=== PATIENT | male | born 1975 | race Two or more races ===

== ENCOUNTER 2016-11-14 15:53 | Emergency (ER) | payer SELFPAY ==
[~2016-11-14] VITALS: Ht 170.2 cm; Wt 113.4 kg
[2016-11-14] MEDS ORDERED: NKM (16:00)
--- NOTE | 2016-11-14 16:12 | Emergency Room Report ---
History of Present Illness General Chief Complaint: Laceration Source: Patient Present Illness HPI Patient with laceration R hand. He was transferring a knife with his L hand and not looking when he sliced his R hand. There was significant bleeding. He applied pressure and the bleeding was controlled. There is minimal pain - sharp. No numbness. Able to move his finger without difficulty. R handed No diabetes. Tetanus > 10. 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 Reviewed Nursing Documentation: PMH: Agreed, PSxH: Agreed Nursing Documentation-PMH Past Medical History: No Stated History Review of Systems Constitutional: Denies: fever Musculoskeletal: Reports: see HPI Skin: Reports: see HPI Neurological: Reports: see HPI Hematologic/Lymphatic: Reports: see HPI Physical Exam Vital Signs Date Time Temp Pulse Resp B/P Pulse Ox O2 Delivery O2 Flow Rate FiO2 11/14/16 15:57 97.7 106 18 116/77 95 Room Air Sp02 EP Interpretation: reviewed, normal General Appearance: well appearing, no apparent distress, GCS 15 Head: normocephalic, atraumatic Eyes: bilateral eye PERRL, bilateral eye normal inspection ENT: hearing grossly normal, normal voice, moist mucus membranes Neck: full range of motion, supple Respiratory: no respiratory distress, speaking full sentences Cardiovascular #2: 2+ radial (R) Musculoskeletal: digits/nails normal, normal range of motion, other - extension of index finger with full strength Neurologic: oriented x3, motor strength/tone normal, sensory intact Psychiatric: mood/affect normal Skin: laceration - 2 cm dorsum of index MCP R hand Procedures Laceration/Wound Repair Laceration/Wound Repair : Consent: Verbal Wound Location: upper extremity Wound's Depth, Shape: linear, flap Wound Length (cm): 3 Wound Explored: clean Irrigated w/ Saline (ccs): 40 Betadine Prep?: Yes Anesthesia: 1% Lidocaine Volume Anesthetic (ccs): 2 Wound Debrided: minimal Suture Size/Type: 5:0, nylon Deep Layer Suture Size/Type: 5:0, chromic, other - one suture to control venous bleeding Sterile Dressing Applied?: Yes Splint Applied?: Yes Type of Splint Applied: Index finger - straight Sling Applied?: Yes Patient Tolerated: Well Complications: None Medical Decision Making Diagnostic Impression: Primary Impression: Laceration of right index finger Additional Impression: Partial extensor tendon laceration ER Course Patient with laceration dorsum of R hand with bleeding. Ddx: venous bleed, tendon partial lac, lac needing sutures. Patient also needs tetanus. Exam after anesthesia shows partial extensor tendon laceration. This does not need immediate repair (and might not need repair). Antibiotics begun. Laceration repaired. Bleeding controlled. Splint applied by tech. Position excellent. Neurovasc normal as checked by me. Patient stable for outpatient observation and treatment. Last Vital Signs Date Time Temp Pulse Resp B/P Pulse Ox O2 Delivery O2 Flow Rate FiO2 11/14/16 17:14 97.9 95 16 124/73 98 Room Air Status: improved Disposition: HOME, SELF-CARE Condition: Improved Scripts Tramadol Hcl* (ULTRAM*) 50 Mg Tablet 50 MG ORAL Q6H Y for For Pain, #10 TAB 0 Refills Prov: Hi Martinez M.D. 11/14/16 Ibuprofen* (MOTRIN*) 600 Mg Tablet 600 MG ORAL Q6H Y for For Pain, #20 TAB Prov: Hi Martinez M.D. 11/14/16 Cephalexin* (KEFLEX*) 500 Mg Capsule 500 MG ORAL Q6H, #28 CAP 0 Refills Prov: Hi Martinez M.D. 11/14/16 Hi Martinez M.D. Nov 14, 2016 16:12
[2016-11-14] MEDS ORDERED: Lidocaine 1% MPF 10mg/ml 5ml IM ONE (16:15)
[2016-11-14] MEDS ORDERED: TdaP Vaccine 0.5ml Syr IM ONE (16:15)
[2016-11-14] MEDS ORDERED: TRAMADOL HCL50 MG ORAL (16:53)
[2016-11-14] MEDS ORDERED: IBUPROFEN600 MG ORAL (16:53)
[2016-11-14] MEDS ORDERED: KEFLEX500 MG ORAL (16:53)
[2016-11-14 16:55] VITALS: BP 124/73
[2016-11-14] MEDS ORDERED: Cephalexin 500mg cap ORAL ONE (17:00)
[2016-11-14] MEDS ORDERED: Bacitracin Oint UD TOPIC ONE (17:00)
[2016-11-14 17:14] VITALS: BP 124/73
== END 2016-11-14 17:14 | disposition home or self-care (01) ==
LOC: EMR 16:12
DX: S61.210A Laceration without foreign body of right index finger without damage to nail, initial encounter (principal); S66.320A Laceration of extensor muscle, fascia and tendon of right index finger at wrist and hand level, initial encounter; W26.0XXA Contact with knife, initial encounter; Y93.9 Activity, unspecified; Y92.9 Unspecified place or not applicable; Z23 Encounter for immunization
CPT/HCPCS: 29280; 90471; 90715; 96372

== ENCOUNTER 2017-03-18 16:21 | Emergency (ER) | payer MEDICAID ==
[~2017-03-18] VITALS: Ht 170.2 cm; Wt 113.4 kg
[~2017-03-18 16:21] MED LIST: IBUPROFEN600 MG ORAL; KEFLEX500 MG ORAL; NKM; TRAMADOL HCL50 MG ORAL
[2017-03-18 16:41] VITALS: BP 146/89
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
[2017-03-18] MEDS ORDERED: TYLENOL EXTRA500 MG ORAL (17:00)
[2017-03-18 17:14] VITALS: BP 146/89
== END 2017-03-18 17:14 | disposition home or self-care (01) ==
LOC: EMR 16:51
DX: S00.03XA Contusion of scalp, initial encounter (principal); S09.90XA Unspecified injury of head, initial encounter; W50.0XXA Accidental hit or strike by another person, initial encounter; Y93.9 Activity, unspecified; Y92.9 Unspecified place or not applicable; R00.0 Tachycardia, unspecified
CPT/HCPCS: 99283

== ENCOUNTER 2018-09-26 02:23 | Emergency (ER) | payer SELFPAY ==
[~2018-09-26] VITALS: Ht 170.2 cm; Wt 99.8 kg
[~2018-09-26 02:23] MED LIST changes: +TYLENOL EXTRA500 MG ORAL
[2018-09-26] MEDS: Ipratropium 0.02% Inh Soln 2.5ml UD HHN SCH ×3 (02:43→03:21)
[2018-09-26] MEDS: Albuterol ud Inhalation HHN SCH ×3 (02:43→03:21)
--- NOTE | 2018-09-26 02:53 | NUR ---
ED Nurse Note: Pt walked in c/o possible allergic reaction to pollen and SOB. Noted wheezing LS on expiratory to auscultation. pt tachypnea, AA&ox4, gcs=15, skin warm and dry, resp even and unlabored, -n/v/d, ambulatory w/ steady gait. RT at the bedside, will cont monitor. Sinus tach on cardiac monitor technician. vSS.
[2018-09-26 02:54] VITALS: BP 135/90
[2018-09-26] MEDS ORDERED: PREDNISONE20 MG ORAL (03:56)
[2018-09-26] MEDS ORDERED: ALBUTEROL SULF8.5 GM INH (03:56)
[2018-09-26] MEDS ORDERED: ZYRTEC10 MG ORAL (03:56)
[2018-09-26 04:00] VITALS: BP 135/90
--- NOTE | 2018-09-26 04:00 | NUR ---
ED Nurse Note: Patient cleared cleared for discharge per ERMD. AO4. NAD. VSS. Accompanied by family member. Patient given prescriptions and discharge instructions; verbalized understanding. ID removed. Patient ambulated steady out of ED with all belongings.
--- NOTE | 2018-09-26 04:27 | Emergency Room Report ---
History of Present Illness General Chief Complaint: Dyspnea/Respdistress Source: Patient Present Illness HPI 42-year-old male presents ED for evaluation. Patient complaining of shortness of breath and wheezing. History of asthma. States that he was exposed to pollen which triggered his asthma today. Does not have an inhaler at this time. Feels chest tightness. Denies cough. Denies fevers or chills. Denies chest pain. No other aggravating relieving factors. Denies any other associated symptoms Allergies: Uncoded Allergies: POLLEN (Allergy, Unknown, 09/26/18) Patient History Past Medical History: none Past Surgical History: none Pertinent Family History: none Social History: Denies: smoking, alcohol use, drug use Immunizations: UTD Reviewed Nursing Documentation: PMH: Agreed; PSxH: Agreed Nursing Documentation-PMH Past Medical History: No Stated History Review of Systems All Other Systems: negative except mentioned in HPI Physical Exam Vital Signs Date Time Temp Pulse Resp B/P (MAP) Pulse Ox O2 Delivery O2 Flow Rate FiO2 09/26/18 02:35 98.1 107 26 133/86 94 Room Air 09/26/18 02:43 21 Sp02 EP Interpretation: reviewed, normal General Appearance: no apparent distress, alert, GCS 15, non-toxic Head: normocephalic Eyes: bilateral eye normal inspection, bilateral eye PERRL ENT: hearing grossly normal, normal pharynx, no angioedema, normal voice Neck: full range of motion, supple/symm/no masses Respiratory: decreased breath sounds, wheezing Cardiovascular #1: regular rate, rhythm, no edema Gastrointestinal: normal bowel sounds, non tender, soft, non-distended, no guarding, no rebound Rectal: deferred Genitourinary: no CVA tenderness Musculoskeletal: normal inspection Neurologic: alert, oriented x3, responsive, motor strength/tone normal, sensory intact, speech normal Psychiatric: normal inspection Skin: normal inspection Lymphatic: normal inspection Medical Decision Making Diagnostic Impression: Primary Impression: Asthma exacerbation Qualified Codes: J45.21 - Mild intermittent asthma with (acute) exacerbation ER Course Hospital Course 42-year-old male presents to ED complaining of chest tightness, wheezing Differential diagnoses include: URI, bronchitis, asthma/COPD, pneumonia Clinical course Patient placed on stretcher. After initial history, physical exam reveals a male in no acute distress. Bilateral TM unremarkable. No pharyngeal erythema. No tonsillar exudates. No lymphadenopathy. Mild wheezing noted on exam, no signs of respiratory distress or retractions. Patient given Prednisone and albuterol/atrovent treatment in ED with symptoms improved. Discussed findings with patient. Safe for discharge close outpatient follow- up. States he has a PMD. We'll prescribe inhaler, steroids, zyrtec Diagnosis - asthma exacerbation Stable and discharged home with prescriptions for albuterol, prednisone, zyrtec. Instructed to followup with PMD. Return to ED if symptoms recur or worsen Last Vital Signs Date Time Temp Pulse Resp B/P (MAP) Pulse Ox O2 Delivery O2 Flow Rate FiO2 09/26/18 04:00 98.1 111 20 135/90 98 Room Air 21 Status: improved Disposition: HOME, SELF-CARE Condition: Stable Scripts Cetirizine Hcl* (ZYRTEC*) 10 Mg Tablet 10 MG ORAL DAILY, #30 TAB 0 Refills Prov: Manas Gomez MD 09/26/18 Prednisone* (PREDNISONE*) 20 Mg Tablet 40 MG ORAL DAILY, #10 TAB Prov: Manas Gomez MD 09/26/18 Albuterol Sulfate* (ALBUTEROL SULFATE MDI*) 8.5 Gm Hfa.aer.ad 2 PUFF INH Q6H, #1 EA 0 Refills Prov: Manas Gomez MD 09/26/18 Patient Instructions: Asthma, Adult, [id number] Manas Gomez MD Sep 26, 2018 04:27
== END 2018-09-26 04:00 | disposition home or self-care (01) ==
LOC: EMR 02:50
DX: J45.901 Unspecified asthma with (acute) exacerbation (principal)
CPT/HCPCS: 94640; 99284; J7512